=== PATIENT | female | born 1985 | race Caucasian/White ===

== ENCOUNTER 2020-10-07 15:55 | Emergency (ER) | payer SELFPAY ==
[~2020-10-07] VITALS: Ht 170.2 cm; Wt 72.1 kg
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
[2020-10-07] MEDS ORDERED: CEPH500T PO (16:50)
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
--- NOTE | 2020-10-07 19:38 | NUR ---
PT IS PROVIDED WITH A MEAL
--- NOTE | 2020-10-07 20:39 | NUR ---
Patient discharged to home in stable condition. Written and verbal after care instructions given. Patient verbalizes understanding of instruction. Pt ambulatory with a steady gait
[2020-10-07 20:40] VITALS: BP 105/80
== END 2020-10-07 20:40 | disposition home or self-care (01) ==
LOC: ER 15:58
DX: S02.2XXA Fracture of nasal bones, initial encounter for closed fracture (principal); F10.10 Alcohol abuse, uncomplicated; Y04.0XXA Assault by unarmed brawl or fight, initial encounter; Y93.89 Activity, other specified; Y92.89 Other specified places as the place of occurrence of the external cause; Y99.8 Other external cause status; Y90.9 Presence of alcohol in blood, level not specified
CPT/HCPCS: 70486; 99284; A6403